=== PATIENT | female | born 1965 | race Native Hawaiian/Other Pacific Islander ===

== ENCOUNTER 2019-03-04 11:41 | Emergency (ER) | payer SELFPAY ==
--- NOTE | 2019-03-04 11:58 | Emergency Department Report ---
Chief Complaint: Hyperglycemia Stated Complaint: DIABETES COMPLICATIONS Time Seen by Provider: 03/04/19 11:56 - HPI History of Present Illness: WENT TO MD TODAY FOR CHECK UP ON MACROBID BS HIGH AT MD THEY SENT HER HERE 353 ON ARRIVAL TO ER PMH DM LMP MENOPAUSE PSH NONE RX METFORMIN MACROBID MSE COMPLETED NPO MSE screening note: Focused history and physical exam performed. Due to findings the following was ordered: ED Disposition for MSE Condition: Stable
[2019-03-04 12:44] LABS: Bilirubin,Urine NEG (Negative); Blood,Urine NEG (Negative); Color,Urine Yellow (Yellow); Protein,Urine <15 mg/dL mg/dL (Negative); Urobilinogen,Urine < 2.0 mg/dL (<2.0)
--- NOTE | 2019-03-04 13:01 | Emergency Department Report ---
HPI - General Chief Complaint: Hyperglycemia Time Seen by Provider: 03/04/19 11:56 - HPI HPI: Room 19 The patient is a 54-year-old female presenting with a chief complaint of hyperglycemia. The patient went to [facility] for a routine vi sit and was found to be hyperglycemic with ketonuria and subsequent sent to the ED for evaluation. Patient states she's been out of her diabetes medication for the past 5 days but has no complaints. Patient denies nausea vomiting or diarrhea. Patient denies history of fever or pain of any type. Location: [See above] Duration: [See above] Quality: Asymptomatic Severity: [See above] Modifying factors: [see above] Context: [see above] Mode of transportation: [not driving] ED Past Medical Hx - Past Medical History Hx Diabetes: Yes - Surgical History Past Surgical History?: No - Family History Family history: no significant - Social History Smoking Status: Never Smoker Substance Use Type: None ED Review of Systems ROS: Stated complaint: DIABETES COMPLICATIONS Other details as noted in HPI Constitutional: no symptoms reported Eyes: denies: eye pain ENT: denies: throat pain Respiratory: no symptoms reported Cardiovascular: denies: chest pain Endocrine: other (hyperglycemia) Gastrointestinal: denies: abdominal pain Genitourinary: denies: dysuria Musculoskeletal: denies: back pain Neurological: denies: headache Physical Exam - Physical Exam Vital Signs: Vital Signs 03/04/19 11:56 Temperature 98.0 F Pulse Rate 85 Respiratory 18 Rate Blood Pressure 148/81 O2 Sat by Pulse 97 Oximetry Physical Exam: GENERAL: The patient is well-developed well-nourished female lying on stretcher not appearing to be in acute distress. [] HEENT: Normocephalic. Atraumatic. Extraocular motions are intact. Patient has moist mucous membranes. NECK: Supple. Trachea midline CHEST/LUNGS: Clear to auscultation. There is no respiratory distress noted. HEART/CARDIOVASCULAR: Regular. There is no tachycardia. There is no gallop rub or murmur. ABDOMEN: Abdomen is soft, nontender. Patient has normal bowel sounds. There is no abdominal distention. SKIN: There is no rash. There is no edema. There is no diaphoresis. NEURO: The patient is awake, alert, and oriented. The patient is cooperative. The patient has normal speech MUSCULOSKELETAL: There is no evidence of acute injury. ED Course Vital Signs 03/04/19 11:56 Temperature 98.0 F Pulse Rate 85 Respiratory 18 Rate Blood Pressure 148/81 O2 Sat by Pulse 97 Oximetry - Reevaluation(s) Reevaluation #1: 03/04/19 14:47 Accu-Chek 259 ED Medical Decision Making - Lab Data Result diagrams: 03/04/19 12:32 03/04/19 12:32 Laboratory Tests 03/04/19 03/04/19 03/04/19 12:01 12:32 12:32 WBC 11.0 RBC 4.80 Hgb 14.0 Hct 41.7 MCV 87 MCH 29 MCHC 33 RDW 13.5 Plt Count 282 VBG pH Sodium 131 L Potassium 4.3 Chloride 95.3 L Carbon Dioxide 24 Anion Gap 16 BUN 10 Creatinine 0.4 L Estimated GFR > 60 BUN/Creatinine Ratio 25 Glucose 391 H POC Glucose 353 H Calcium 9.2 Urine Color Urine Turbidity Urine pH Ur Specific [place] Urine Protein Urine Glucose (UA) Urine Ketones Urine Blood Urine Nitrite Urine Bilirubin Urine Urobilinogen Ur Leukocyte Esterase Urine WBC (Auto) Urine RBC (Auto) U Epithel Cells (Auto) 03/04/19 03/04/19 03/04/19 13:25 14:11 Unknown WBC RBC Hgb Hct MCV MCH MCHC RDW Plt Count VBG pH 7.381 Sodium Potassium Chloride Carbon Dioxide Anion Gap BUN Creatinine Estimated GFR BUN/Creatinine Ratio Glucose POC Glucose 340 H Calcium Urine Color Yellow Urine Turbidity Clear Urine pH 7.0 Ur Specific [place] 1.023 Urine Protein <15 mg/dl Urine Glucose (UA) >=500 Urine Ketones Neg Urine Blood Neg Urine Nitrite Neg Urine Bilirubin Neg Urine Urobilinogen < 2.0 Ur Leukocyte Esterase Neg Urine WBC (Auto) 1.0 Urine RBC (Auto) 1.0 U Epithel Cells (Auto) 1.0 - Differential Diagnosis DKA, hyperglycemia Critical care attestation.: If time is entered above; I have spent that time in minutes in the direct care of this critically ill patient, excluding procedure time. ED Disposition Clinical Impression: Hyperglycemia Disposition: DC-01 TO HOME OR SELFCARE Is pt being admited?: No Does the pt Need Aspirin: No Condition: Stable Instructions: Diabetic Hyperglycemia (ED) Additional Instructions: Return to the emergency department immediately should you develop worsening symptoms, fever, inability to tolerate food or liquid or any other concerns. Referrals: [facility] [Outside] - 3-5 Days Time of Disposition: 14:48
[2019-03-04 13:14] LABS: Hematocrit 41.7 % (30.3-42.9); Mean Corpuscular HGB Conc 33 % (30-34); Mean Corpuscular Volume 87 fl (79-97); Platelet Count 282 K/mm3 (140-440); Red Cell Distribution Width 13.5 % (13.2-15.2)
[2019-03-04 13:39] LABS: BUN/Creatinine Ratio 25; Blood Urea Nitrogen 10 mg/dL (7-17); Calcium 9.2 mg/dL (8.4-10.2); Hemolysis Index 33
[2019-03-04] MEDS ORDERED: NACL 0.9% 1000 ML 1,000 ML IV ONE (13:44)
[2019-03-04] MEDS ORDERED: HumuLIN R IV ONE (14:07)
[2019-03-04 15:13] VITALS: BP 137/74
== END 2019-03-04 15:13 | disposition home or self-care (01) ==
LOC: ED 11:41
DX: E11.65 Type 2 diabetes mellitus with hyperglycemia (principal)
CPT/HCPCS: 36415; 80048; 81001; 82805; 82962; 85027; 96361; 96374; 99283; J7030; J1815

== ENCOUNTER 2020-01-07 22:56 | Emergency (ER) | payer SELFPAY ==
--- NOTE | 2020-01-08 01:19 | Emergency Department Report ---
ED General Adult HPI - General Chief complaint: Fever Stated complaint: FEVER Time Seen by Provider: 01/08/20 01:09 Source: patient, family Mode of arrival: Ambulatory Limitations: Language Barrier - History of Present Illness Initial comments: pt is a 54-year-old female who presents emergency room with complaints of a subjective fever that began 2 days ago. She has associated generalized body aches, suprapubic abdominal discomfort, dysuria, urinary frequency. She denies any nausea, vomiting, diarrhea, cough, shortness of breath, chest pain. She denies any sick contacts or recent travel. She has a past medical history of diabetes. She denies any allergies to medications. [place] interpretation by patient's daughter, patient consented and felt comfortable using her daughter for [place] interpretation - Related Data Previous Rx's Medication Instructions Recorded Last Taken Type cephALEXin [Keflex] 500 mg PO BID 7 Days #14 cap 01/08/20 Unknown Rx Allergies Allergy/AdvReac Type Severity Reaction Status Date / Time No Known Allergies Allergy Unverified 03/04/19 11:48 ED Review of Systems ROS: Stated complaint: FEVER Other details as noted in HPI Comment: All other systems reviewed and negative ED Past Medical Hx - Past Medical History Previous Medical History?: Yes Hx Diabetes: Yes - Surgical History Past Surgical History?: No - Social History Smoking Status: Never Smoker Substance Use Type: None - Medications Home Medications: Home Medications Medication Instructions Recorded Confirmed Last Taken Type cephALEXin [Keflex] 500 mg PO BID 7 Days #14 cap 01/08/20 Unknown Rx ED Physical Exam - General Limitations: No Limitations General appearance: alert, in no apparent distress - Head Head exam: Present: atraumatic, normocephalic - Eye Eye exam: Present: normal appearance - ENT ENT exam: Present: mucous membranes moist - Respiratory Respiratory exam: Present: normal lung sounds bilaterally. Absent: respiratory distress, wheezes, rales, rhonchi, stridor, chest wall tenderness, accessory muscle use, decreased breath sounds, prolonged expiratory - Cardiovascular Cardiovascular Exam: Present: regular rate, normal rhythm, normal heart sounds. Absent: systolic murmur, diastolic murmur, rubs, gallop - GI/Abdominal GI/Abdominal exam: Present: soft, normal bowel sounds. Absent: distended, tende rness, guarding, rebound, rigid - Back Exam Back exam: Absent: CVA tenderness (R), CVA tenderness (L) - Neurological Exam Neurological exam: Present: alert, oriented X3 - Psychiatric Psychiatric exam: Present: normal affect, normal mood - Skin Skin exam: Present: warm, dry, intact ED Course Vital Signs 01/07/20 01/08/20 23:16 01:36 Temperature 99.5 F 98.6 F Pulse Rate 90 88 Respiratory 18 17 Rate Blood Pressure 146/78 Blood Pressure 138/65 [Right] O2 Sat by Pulse 96 98 Oximetry ED Medical Decision Making - Lab Data Result diagrams: 01/08/20 01:01 01/08/20 01:01 Lab Results 01/08/20 01/08/20 01/08/20 Range/Units 01:01 01:01 01:29 WBC 11.5 H (4.5-11.0) K/mm3 RBC 4.86 (3.65-5.03) M/mm3 Hgb 14.0 (10.1-14.3) gm/dl Hct 41.8 (30.3-42.9) % MCV 86 (79-97) fl MCH 29 (28-32) pg MCHC 34 (30-34) % RDW 13.0 L (13.2-15.2) % Plt Count 182 (140-440) K/mm3 Lymph % (Auto) 25.7 (13.4-35.0) % Nance % (Auto) 10.7 H (0.0-7.3) % Eos % (Auto) 2.6 (0.0-4.3) % Baso % (Auto) 0.8 (0.0-1.8) % Lymph # 2.9 (1.2-5.4) K/mm3 Nance # 1.2 H (0.0-0.8) K/mm3 Eos # 0.3 (0.0-0.4) K/mm3 Baso # 0.1 (0.0-0.1) K/mm3 Seg Neutrophils % 60.2 (40.0-70.0) % Seg Neutrophils # 6.9 (1.8-7.7) K/mm3 Sodium 133 L (137-145) mmol/L Potassium 3.9 (3.6-5.0) mmol/L Chloride 94.4 L (98-107) mmol/L Carbon Dioxide 23 (22-30) mmol/L Anion Gap 20 mmol/L BUN 13 (7-17) mg/dL Creatinine 0.6 L (0.7-1.2) mg/dL Estimated GFR > 60 ml/min BUN/Creatinine Ratio 22 % Glucose 433 H (65-100) mg/dL POC Glucose (70-105) Calcium 9.7 (8.4-10.2) mg/dL Total Bilirubin (0.1-1.2) mg/dL Direct Bilirubin (0-0.2) mg/dL Indirect Bilirubin mg/dL AST (5-40) units/L ALT (7-56) units/L Alkaline Phosphatase (35-129) units/L Total Protein (6.3-8.2) g/dL Albumin (3.9-5) g/dL Albumin/Globulin Ratio % Urine Color Yellow (Yellow) Urine Turbidity Clear (Clear) Urine pH 6.0 (5.0-7.0) Ur Specific [place] 1.030 (1.003-1.030) Urine Protein <15 mg/dl (Negative) mg/dL Urine Glucose (UA) >=500 (Negative) mg/dL Urine Ketones Tr (Negative) mg/dL Urine Blood Neg (Negative) Urine Nitrite Neg (Negative) Urine Bilirubin Neg (Negative) Urine Urobilinogen 2.0 (<2.0) mg/dL Ur Leukocyte Esterase Sm (Negative) Urine WBC (Auto) 16.0 H (0.0-6.0) /HPF Urine RBC (Auto) 1.0 (0.0-6.0) /HPF U Epithel Cells (Auto) 1.0 (0-13.0) /HPF Urine Mucus Few /HPF Influenza A (Rapid) (Negative) Influenza B (Rapid) (Negative) 01/08/20 01/08/20 01/08/20 Range/Units 01:30 03:10 Unknown WBC (4.5-11.0) K/mm3 RBC (3.65-5.03) M/mm3 Hgb (10.1-14.3) gm/dl Hct (30.3-42.9) % MCV (79-97) fl MCH (28-32) pg MCHC (30-34) % RDW (13.2-15.2) % Plt Count (140-440) K/mm3 Lymph % (Auto) (13.4-35.0) % Nance % (Auto) (0.0-7.3) % Eos % (Auto) (0.0-4.3) % Baso % (Auto) (0.0-1.8) % Lymph # (1.2-5.4) K/mm3 Nance # (0.0-0.8) K/mm3 Eos # (0.0-0.4) K/mm3 Baso # (0.0-0.1) K/mm3 Seg Neutrophils % (40.0-70.0) % Seg Neutrophils # (1.8-7.7) K/mm3 Sodium (137-145) mmol/L Potassium (3.6-5.0) mmol/L Chloride (98-107) mmol/L Carbon Dioxide (22-30) mmol/L Anion Gap mmol/L BUN (7-17) mg/dL Creatinine (0.7-1.2) mg/dL Estimated GFR ml/min BUN/Creatinine Ratio % Glucose (65-100) mg/dL POC Glucose 327 H (70-105) Calcium (8.4-10.2) mg/dL Total Bilirubin 0.30 (0.1-1.2) mg/dL Direct Bilirubin < 0.2 (0-0.2) mg/dL Indirect Bilirubin 0.1 mg/dL AST 16 (5-40) units/L ALT 15 (7-56) units/L Alkaline Phosphatase 181 H (35-129) units/L Total Protein 7.1 (6.3-8.2) g/dL Albumin 4.0 (3.9-5) g/dL Albumin/Globulin Ratio 1.3 % Urine Color (Yellow) Urine Turbidity (Clear) Urine pH (5.0-7.0) Ur Specific [place] (1.003-1.030) Urine Protein (Negative) mg/dL Urine Glucose (UA) (Negative) mg/dL Urine Ketones (Negative) mg/dL Urine Blood (Negative) Urine Nitrite (Negative) Urine Bilirubin (Negative) Urine Urobilinogen (<2.0) mg/dL Ur Leukocyte Esterase (Negative) Urine WBC (Auto) (0.0-6.0) /HPF Urine RBC (Auto) (0.0-6.0) /HPF U Epithel Cells (Auto) (0-13.0) /HPF Urine Mucus /HPF Influenza A (Rapid) Negative (Negative) Influenza B (Rapid) Negative (Negative) - Medical Decision Making pt is a 54-year-old female who presents emergency room with complaints of a subjective fever that began 2 days ago. She has associated generalized body a ches, suprapubic abdominal discomfort, dysuria, urinary frequency. She denies any nausea, vomiting, diarrhea, cough, shortness of breath, chest pain. She denies any sick contacts or recent travel. She has a past medical history of diabetes. She denies any allergies to medications. [place] interpretation by patient's daughter, patient consented and felt comfortable using her daughter for [place] interpretation Vitals are stable. No abdominal tenderness on exam, no guarding, no rebound, no rigidity, no CVA tenderness. Labs with elevated blood sugar and elevated alk phos with normal LFTs. UA shows evidence of UTI. no clinical s/sx of pyelonephritis, pt is afebrile, no significant leukocytosis, no vomiting. Patient given 1 L IV fluids, Zofran, morphine. Patient's blood sugar improved to 327 and she was feeling much better and ready to go home. will have patient follow-up with her primary care doctor to have repeat labs and urine and to monitor her blood sugar closely. Patient given prescription for Keflex for UTI. advised pt please take medication as prescribed. Increase your water intake. Please eat a low sugar low-carb diet. Incorporate daily exercise. Please take your blood sugar and monitor it closely. Please follow-up with your primary care doctor to have your urine retested and to discuss the elevation in your blood sugar. Return to emergency room for any new or worsening symptoms. - Differential Diagnosis Influenza, viral syndrome, UTI, pyelonephritis Critical care attestation.: If time is entered above; I have spent that time in minutes in the direct care of this critically ill patient, excluding procedure time. ED Disposition Clinical Impression: Suprapubic pain, Chills, Blood glucose elevated UTI (urinary tract infection) Qualifiers: Urinary tract infection type: acute cystitis Hematuria presence: without hematuria Qualified Code(s): N30.00 - Acute cystitis without hematuria Disposition: TO HOME OR SELFCARE Is pt being admited?: No Does the pt Need Aspirin: No Condition: Stable Instructions: Urinary Tract Infection in Women (ED) Additional Instructions: Please take medication as prescribed. Increase your water intake. Please eat a low sugar low-carb diet. Incorporate daily exercise. Please take your blood sugar and monitor it closely. Please follow-up with your primary care doctor to have your urine retested and to discuss the elevation in your blood sugar. Return to emergency room for any new or worsening symptoms. Por favor, tome los medicamentos segn lo prescrito. Aumente mcneal ingesta de agua. Por favor, consuma radha dieta baja en azcar baja en carbohidratos. Incorpora ejercicio diario. Por favor, tome mcneal azcar en la shu y monitoree de cerca. Por favor, kim un seguimiento con mcneal mdico de atencin primaria para que se vuelva a realizar la prueba de orina y para discutir la elevacin en mcneal azcar en la shu. Regrese a la narayan de emergencias para cualquier sntoma nuevo o que empeore. Prescriptions: cephALEXin [Keflex] 500 mg PO BID 7 Days #14 cap Referrals: [facility] MD [facility]BY [Primary Care Provider] - 3-5 Days Time of Disposition: 03:14 Print Language: BENGALI
[2020-01-08 01:37] VITALS: BP 138/65
[2020-01-08 01:49] LABS: Basophils # (Auto) 0.1 K/mm3 (0.0-0.1); Basophils % (Auto) 0.8 % (0.0-1.8); Eosinophils # (Auto) 0.3 K/mm3 (0.0-0.4); Eosinophils % (Auto) 2.6 % (0.0-4.3); Hematocrit 41.8 % (30.3-42.9); Lymphocytes # (Auto) 2.9 K/mm3 (1.2-5.4); Lymphocytes % (Auto) 25.7 % (13.4-35.0); Mean Corpuscular HGB Conc 34 % (30-34); Mean Corpuscular Volume 86 fl (79-97); Monocytes # (Auto) 1.2 K/mm3 (0.0-0.8); Monocytes % (Auto) 10.7 % (0.0-7.3); Platelet Count 182 K/mm3 (140-440); Red Blood Count 4.86 M/mm3 (3.65-5.03)
[2020-01-08 01:52] LABS: BUN/Creatinine Ratio 22; Blood Urea Nitrogen 13 mg/dL (7-17); Calcium 9.7 mg/dL (8.4-10.2); Hemolysis Index 4
[2020-01-08 01:56] LABS: Bilirubin,Urine NEG (Negative); Blood,Urine NEG (Negative); Color,Urine Yellow (Yellow); Mucus,Urine FEW /HPF; Protein,Urine <15 mg/dL mg/dL (Negative)
[2020-01-08] MEDS ORDERED: SODIUM CHLORIDE 0.9% 1000 ML 1,000 ML IV ONE (01:57)
[2020-01-08] MEDS ORDERED: MORPHINE 4 MG/1 ML INJ IV ONE (01:57)
[2020-01-08] MEDS ORDERED: ONDANSETRON 4 MG/2 ML INJ IV ONE (01:57)
[2020-01-08 02:08] LABS: Alanine Aminotransferase 15 units/L (7-56)
[2020-01-08 02:12] LABS: Bilirubin,Direct < 0.2 mg/dL (0-0.2)
== END 2020-01-08 03:35 | disposition home or self-care (01) ==
LOC: ED 22:56
DX: N39.0 Urinary tract infection, site not specified (principal); E11.9 Type 2 diabetes mellitus without complications; R50.9 Fever, unspecified; R10.33 Periumbilical pain; Z79.899 Other long term (current) drug therapy
CPT/HCPCS: 36415; 80048; 80076; 81001; 82962; 85025; 87076; 87086; 87186; 87400; 96374; 96375; 99283; J2270; J2405; J7030